=== PATIENT | male | born 1980 | race African-American/Black ===

== ENCOUNTER 2017-05-15 22:59 | Emergency (ER) | payer SELFPAY | END 2017-05-15 23:10 | disposition home or self-care (01) | LOC: BURERS 22:59 | DX: K02.9 Dental caries, unspecified (principal) | CPT/HCPCS: 99282 ==

== ENCOUNTER 2022-02-11 06:35 | Observation (INO) | payer SELFPAY ==
[2022-02-11 07:09] LABS: Bilirubin Negative (Negative); Blood, Urine Negative (Negative); Clarity Clear (Clear); Glucose, Urine (Dipstick) >=1000 mg/dL (Negative); Ketone, Urine Negative (Negative); Leukocyte Negative (Negative); Nitrite Negative (Negative); Protein, Urine (Dipstick) Negative (Neg-Trace); Urobilinogen 0.2 mg/dL (Less than 2)
[2022-02-11 07:49] LABS: Hemoglobin 15.9 g/dL (14.0-18.0); Mean Corpuscular HGB CONC 33.5 g/dL (32.0-36.0); Mean Corpuscular Hemoglobin 33.5 pg (27.0-31.0); Mean Platelet Volume 7.7 fL (7.4-10.4); Platelet Count 319 thou/uL (130-400); Red Blood Cell (RBC) Count 4.74 mill/uL (4.70-6.10); White Blood Cell (WBC) Count 10.5 thou/uL (4.8-10.8)
[2022-02-11 07:52] LABS: Base Excess-Venous -0.2 mmol/L (-2.0 to 3.0); Bicarbonate (HCO3v) 24.9 mmol/L (22.0-28.0); CO2 Tension (PvCO2) 41.3 mmHg (42.0-51.0); Calcium, Ionized 1.25 mmol/L (1.15-1.33); Chloride 100 mmol/L (98-107); Hemoglobin - Calc 16.2 g/dL (14.0-18.0); Potassium 4.3 mmol/L (3.5-5.1); Sodium 140 mmol/L (138-145); T. Carbon Dioxide 26.2 mmol/L (22.0-28.0); vO2 Saturation-calc 95.8 % (60.0-85.0)
[2022-02-11 08:05] LABS: Band 1 % (5-11); Lymphocytes 20 % (21-51); MDiff Complete? YES; Monocytes 8 % (0-10); Neutrophil 71 % (42-75); Platelet Morphology Comment Appears Adequate; RBC Morphology Normal
[2022-02-11 08:09] LABS: ALT (SGPT) 23 U/L (8-55); AST (SGOT) 11 U/L (5-34); Albumin 4.5 g/dL (3.5-5.0); Alkaline Phosphatase 70 U/L (40-110); Anion Gap 19 mmol/L (10-20); BUN (Urea Nitrogen) 22 mg/dL (8.9-20.6); Bilirubin, Total 0.7 mg/dL (0.2-1.2); Calc. Creatinine Clearance 0 mL/min (70-130); Calcium 10.2 mg/dL (7.8-10.44); Carbon Dioxide 25 mmol/L (22-29); Chloride 98 mmol/L (98-107); Globulin 3.6 g/dL (2.4-3.5); Lipase 12 U/L (8-78); Potassium 4.3 mmol/L (3.5-5.1); Protein, Total 8.1 g/dL (6.0-8.3); Sodium 138 mmol/L (136-145)
[2022-02-11 08:10] LABS: Glucose 704 mg/dL (70-105)
[2022-02-11 11:55] VITALS: BMI 22.8
[2022-02-11] MEDS ORDERED: Dextrose 50% Abboject 50 ML SYRINGE SLOW IVP PRN ×2 (11:59→13:10)
[2022-02-11] MEDS ORDERED: Insulin Regular 300 UNITS/3 ML VIAL SC PRN (12:00)
[2022-02-11] MEDS ORDERED: Ondansetron PF 4 MG/2 ML Vial IVP PRN (12:00)
[2022-02-11] MEDS ORDERED: Dextrose 5% in Water 1,000 ML IV PRN ×2 (12:00→13:10)
[2022-02-11] MEDS ORDERED: Ondansetron ODT 4 MG TAB SL PRN (12:00)
[2022-02-11] MEDS ORDERED: Acetaminophen 325 MG TAB PO PRN (13:12)
[2022-02-11] MEDS: Lactated Ringer's 1,000 ML IV SCH (16:44)
[2022-02-11] MEDS: Insulin Regular 300 UNITS/3 ML VIAL SC PRN ×2 (16:44→20:26)
[2022-02-11 16:45] LABS: SARS-CoV-2 PCR by NAA Not Detected (NotDetected)
[2022-02-12] MEDS: Lactated Ringer's 1,000 ML IV SCH ×3 (00:18→18:20)
[2022-02-12 05:56] LABS: Anion Gap 13 mmol/L (10-20)
[2022-02-12 06:00] LABS: Hemoglobin 12.8 g/dL (14.0-18.0); Mean Corpuscular HGB CONC 34.4 g/dL (32.0-36.0); Mean Corpuscular Hemoglobin 33.5 pg (27.0-31.0); Mean Corpuscular Volume 97.5 fL (78.0-98.0); Mean Platelet Volume 7.1 fL (7.4-10.4); Platelet Count 265 thou/uL (130-400); RBC Distribution Width 11.8 % (11.5-14.5); Red Blood Cell (RBC) Count 3.81 mill/uL (4.70-6.10); White Blood Cell (WBC) Count 6.9 thou/uL (4.8-10.8)
[2022-02-12 06:49] LABS: Glucose 266 mg/dL (70-105); Potassium 3.8 mmol/L (3.5-5.1); Sodium 139 mmol/L (136-145)
[2022-02-12 06:50] LABS: BUN (Urea Nitrogen) 13 mg/dL (8.9-20.6); Calc. Creatinine Clearance 103 mL/min (70-130); Carbon Dioxide 27 mmol/L (22-29); Chloride 103 mmol/L (98-107)
[2022-02-12 07:19] LABS: Calcium 8.1 mg/dL (7.8-10.44)
[2022-02-12 07:41] LABS: Eosinophils 1 % (0-10); Lymphocytes 48 % (21-51); MDiff Complete? YES; Monocytes 5 % (0-10); Neutrophil 45 % (42-75)
[2022-02-12] MEDS: Insulin Regular 300 UNITS/3 ML VIAL SC PRN ×4 (08:39→21:28)
[2022-02-12 16:57] LABS: Hemoglobin A1c 9.4 % (4.0-6.0)
[2022-02-12] MEDS: metFORMIN XR 500 MG TAB PO SCH (17:32)
[2022-02-13 05:41] VITALS: BP 106/68; TEMP 98.3
[2022-02-13] MEDS: metFORMIN XR 500 MG TAB PO SCH (08:09)
[2022-02-13] MEDS: Insulin Regular 300 UNITS/3 ML VIAL SC PRN (09:53)
== END 2022-02-13 10:22 | disposition home or self-care (01) ==
LOC: BURERS 06:35 → BURMED 08:45
PROVIDERS: ADMIT Family Medicine; ATTEND Family Medicine
DX: E11.65 Type 2 diabetes mellitus with hyperglycemia (principal); E86.0 Dehydration; Z20.822 Contact with and (suspected) exposure to COVID-19
CPT/HCPCS: 36415; 36416; 80048; 80053; 81003; 82330; 82803; 83036; 83690; 83735; 84484; 85025; 93005; 96360; 96361; G0378; J1815; J7120; U0003; U0005